=== PATIENT | female | born 1950 | race Caucasian/White ===

== ENCOUNTER 2018-12-01 21:00 | Emergency (ER) | payer MEDICARE, OTHER ==
[2018-12-01] MEDS ORDERED: Sodium Chloride 0.9% 1,000 ML IV STA (22:23)
[2018-12-01] MEDS ORDERED: Iohexol 240 (50 ml) PO ONE (22:23)
--- NOTE | 2018-12-01 22:33 | ED PDOC ---
HPI: Abdomen Time Seen by Provider: 12/01/18 21:10 Chief Complaint (Nursing): Back Pain Chief Complaint (Provider): Abdominal Pain History Per: Patient History/Exam Limitations: no limitations Onset/Duration Of Symptoms: Days (x 1) Current Symptoms Are (Timing): Still Present Location Of Pain/Discomfort: Epigastric, LLQ Quality Of Discomfort: "Pain" Associated Symptoms: Fever, Nausea Additional Complaint(s): 68 year old female with a history of HTN, cervical radiculopathy and asthma presents to the ED for evaluation of left lower and mid-abdominal pain associated with nausea and subjective fever. Patient reports she took Tylenol and Aleve prior to arrival. Denies rash and vomiting. PMD: Dr. Marcell Baez Past Medical History Reviewed: Historical Data, Nursing Documentation, Vital Signs Vital Signs: Last Vital Signs Temp 98.4 F 12/01/18 21:05 Pulse 96 H 12/01/18 21:05 Resp 16 12/01/18 21:05 BP 145/89 12/01/18 21:05 Pulse Ox 98 12/01/18 21:05 - Medical History PMH: Asthma, Gastritis, HTN Denies: HIV, Chronic Kidney Disease - Surgical History Surgical History: (x2) Other surgeries: Dilation & curretage - Family History Family History: States: Unknown Family Hx - Home Medications Home Medications: Ambulatory Orders Medication Instructions Recorded Metoprolol Tartrate [Lopressor] 25 mg PO DAILY #0 tab 04/15/15 Albuterol Sulfate [Proventil Hfa] 2 inh INH PRN PRN 12/01/18 Ciprofloxacin [Cipro] 500 mg PO Q12 #14 tab 12/02/18 Dicyclomine [Bentyl] 20 mg PO Q12 PRN #20 tab 12/02/18 Ondansetron ODT [Zofran ODT] 4 mg PO Q6 PRN #8 odt 12/02/18 metroNIDAZOLE [Flagyl] 500 mg PO Q12 #14 tab 12/02/18 - Allergies Allergies/Adverse Reactions: Allergies Allergy/AdvReac Type Severity Reaction Status Date / Time latex Allergy RASH Verified 10/08/15 23:53 Review of Systems ROS Statement: Except As Marked, All Systems Reviewed And Found Negative Constitutional: Positive for: Fever. Negative for: Chills Gastrointestinal: Positive for: Abdominal Pain (left lower and mid abdominal ). Negative for: Nausea, Vomiting, Diarrhea Skin: Negative for: Rash Physical Exam - Reviewed Nursing Documentation Reviewed: Yes Vital Signs Reviewed: Yes - Physical Exam Appears: Positive for: Non-toxic, No Acute Distress Head Exam: Positive for: ATRAUMATIC, NORMAL INSPECTION, NORMOCEPHALIC Skin: Positive for: Normal Color, Warm, Dry. Negative for: Rash Eye Exam: Positive for: EOMI, Normal appearance, PERRL Neck: Positive for: Normal, Painless ROM, Supple Cardiovascular/Chest: Positive for: Regular Rate, Rhythm. Negative for: Murmur Respiratory: Positive for: Normal Breath Sounds. Negative for: Respiratory Distress Gastrointestinal/Abdominal: Positive for: Bowel Sounds, Soft, Tenderness (left sided abdominal ). Negative for: Mass, Guarding, Rebound Back: Positive for: Normal Inspection. Negative for: L CVA Tenderness, R CVA Tenderness Extremity: Positive for: Normal ROM (x 4). Negative for: Deformity Neurological/Psych: Positive for: Awake, Alert, Normal Tone, Oriented. Negative for: Motor/Sensory Deficits - Laboratory Results Result Diagrams: 12/01/18 23:00 12/01/18 23:00 - ECG O2 Sat by Pulse Oximetry: 98 (RA) Pulse Ox Interpretation: Normal Medical Decision Making Medical Decision Makin:23 Impression: abdominal pain r/o diverticulitis, pyelonephritis Initial Plan: --CMP --CBC --CT Abdomen & Pelvis w/ contrast --NS IV 999 mls --Omnipaque 50 ml PO --Zofran 4 mg IV --Blood cx Not able to give medications for pain due to medications taken prior to arrival. 22:44 Patient to be signed out to Dr. Anderson pending full ER workup including labs and CT, re-evaluation and final disposition. Scribe Attestation: Documented by Manda Mckinnon, acting as a scribe for Arash Gonsales MD Provider Scribe Attestation: All medical record entries made by the Jessica were at my direction and personally dictated by me. I have reviewed the chart and agree that the record accurately reflects my personal performance of the history, physical exam, medical decision making, and the department course for this patient. I have also personally directed, reviewed, and agree with the discharge instructions and disposition Disposition - Clinical Impression Clinical Impression: Colitis - Patient ED Disposition Is Patient to be Admitted: Transfer of Care - Disposition Disposition: Transfer of Care Disposition Time: 22:45 Condition: STABLE Prescriptions: Ciprofloxacin [Cipro] 500 mg PO Q12 #14 tab Dicyclomine [Bentyl] 20 mg PO Q12 PRN #20 tab PRN Reason: abdominal pain/diarrhea metroNIDAZOLE [Flagyl] 500 mg PO Q12 #14 tab Ondansetron ODT [Zofran ODT] 4 mg PO Q6 PRN #8 odt PRN Reason: Nausea/Vomiting Instructions: Colitis Forms: [employer] (Turkish), [facility] ED School/Work Excuse Patient Signed Over To: Kole Anderson Handoff Comments: Pending full Er workup, CT and re-evaluation
[2018-12-01] MEDS ORDERED: Iohexol 240 (50 ml) ONE (22:50)
[2018-12-01 23:13] LABS: BASO # 0.1 K/uL (0.0-0.2); BASO % 0.6 % (0.0-2.0); EOS # 0.1 K/uL (0.0-0.7); EOS % 0.7 % (0.0-4.0); LYMPH # 2.5 K/uL (1.0-4.3); LYMPH % 21.9 % (20.0-40.0); MEAN CELL VOLUME 88.4 fl (81.0-99.0); MEAN CORPUSCULAR HEMOGLOBIN 30.9 pg (27.0-31.0); MEAN PLATELET VOLUME 7.6 fl (7.2-11.7); MONO # 1.3 K/uL (0.0-0.8); MONO % 11.7 % (0.0-10.0); NEUT # 7.4 K/uL (1.8-7.0); NEUT % 65.1 % (50.0-75.0); NRBC % 0.1 % (0.0-0.0); RBC 4.85 Mil/uL (3.80-5.20); RED CELL DISTRIBUTION WIDTH 12.5 % (11.5-14.5)
[2018-12-01 23:23] LABS: ALB/GLOB RATIO 1.2 (1.0-2.1); ALBUMIN 4.4 g/dL (3.5-5.0); ALT/SGPT 50 U/L (9-52); AST/SGOT 45 U/L (14-36); BLOOD UREA NITROGEN 11 mg/dl (7-17); CALCIUM 9.7 mg/dL (8.4-10.2); GFR NON-AFRICAN AMERICAN > 60
[2018-12-01 23:27] LABS: WHITE BLOOD COUNT 11.3 K/uL (4.8-10.8)
[2018-12-01 23:59] LABS: URINE BACTERIA RARE (<OCC); URINE BILIRUBIN NEGATIVE (NEGATIVE); URINE BLOOD NEGATIVE (NEGATIVE); URINE CLARITY CLEAR (Clear); URINE COLOR COLORLESS (YELLOW); URINE GLUCOSE (UA) NEG (NEGATIVE); URINE LEUKOCYTE ESTERASE NEG Leu/uL (Negative); URINE PROTEIN NEGATIVE (NEGATIVE); URINE UROBILINOGEN 0.2-1.0 mg/dL (0.2-1.0)
[2018-12-02] MEDS ORDERED: Sodium Chloride 0.9% 50 ML IV ONE (00:52)
[2018-12-02] MEDS ORDERED: Iohexol 300 100 ML IJ ONE (00:52)
--- NOTE | 2018-12-02 02:28 | ED PDOC ---
- Laboratory Results Result Diagrams: 12/01/18 23:00 12/01/18 23:00 Lab Results: Total Bilirubin 1.4 mg/dl (0.2-1.3) H 12/01/18 23:00 AST 45 U/L (14-36) H 12/01/18 23:00 ALT 50 U/L (9-52) 12/01/18 23:00 Alkaline Phosphatase 68 U/L (38-126) 12/01/18 23:00 Total Protein 8.1 G/DL (6.3-8.2) 12/01/18 23:00 Albumin 4.4 g/dL (3.5-5.0) 12/01/18 23:00 Globulin 3.7 gm/dL (2.2-3.9) 12/01/18 23:00 Albumin/Globulin Ratio 1.2 (1.0-2.1) 12/01/18 23:00 Urine Color Colorless (YELLOW) 12/01/18 23:54 Urine Clarity Clear (Clear) 12/01/18 23:54 Urine pH 7.0 (5.0-8.0) 12/01/18 23:54 Ur Specific [place] < 1.005 (1.003-1.030) 12/01/18 23:54 Urine Protein Negative mg/dL (NEGATIVE) 12/01/18 23:54 Urine Glucose (UA) Neg mg/dL (NEGATIVE) 12/01/18 23:54 Urine Ketones Negative mg/dL (NEGATIVE) 12/01/18 23:54 Urine Blood Negative (NEGATIVE) 12/01/18 23:54 Urine Nitrate Negative (NEGATIVE) 12/01/18 23:54 Urine Bilirubin Negative (NEGATIVE) 12/01/18 23:54 Urine Urobilinogen 0.2-1.0 mg/dL (0.2-1.0) 12/01/18 23:54 Ur Leukocyte Esterase Neg William/uL (Negative) 12/01/18 23:54 Urine RBC (Auto) 1 /hpf (0-3) 12/01/18 23:54 Urine Microscopic WBC < 1 /hpf (0-5) 12/01/18 23:54 Urine Bacteria Rare (<OCC) 12/01/18 23:54 - ECG O2 Sat by Pulse Oximetry: 98 (RA) Pulse Ox Interpretation: Normal Medical Decision Making Medical Decision Makin:00 --Patient signed out to this provider by Dr. Gonsales pending ER workup, CT, re- evaluation and final disposition. 02:02 CT FINDINGS: LUNG BASES: 5 mm subpleural nodule in the right middle lobe on series 2, image 6. This is unchanged from the 2015 study, indicating benignity. Minimal atelectasis near the lung bases. LIVER: There is diffuse fatty infiltration of liver. GALLBLADDER AND BILE DUCTS: The gallbladder appears within normal limits. No radioopaque gallstones are seen. No biliary ductal dilatation is evident. PANCREAS: Unremarkable. SPLEEN: Unremarkable. ADRENAL GLANDS: Unremarkable. KIDNEYS, URETERS, AND BLADDER: The kidneys appear within normal limits. There is no hydronephrosis or hydroureter. No urinary calculi are seen. STOMACH AND BOWEL: No bowel obstruction. There is pericolonic stranding and fluid adjacent to the descending colon with wall thickening at the mid-descending colon. This could represent focal colitis, diverticulitis or mass with associated inflammation. Consider short-term interval repeat imaging after appropriate antimicrobial therapy if indicated. Alternatively, if indicated, this could be evaluated with colonoscopy. APPENDIX: Normal appendix is present in the right lower quadrant. PERITONEUM: No free fluid. No free air. LYMPH NODES: No lymphadenopathy is evident. REPRODUCTIVE: Unremarkable as visualized. VASCULATURE: No evidence of abdominal aortic aneurysm. BONES: Mild multilevel degenerative spine changes. IMPRESSION: 1. There is diffuse fatty infiltration of liver. This was also present on the 2015 study. 2. There is pericolonic stranding and fluid adjacent to the descending colon with wall thickening at the mid-descending colon. This could represent focal colitis, diverticulitis or mass with associated inflammation. Consider short- term interval repeat imaging after appropriate antimicrobial therapy if indicated. Alternatively, if indicated, this could be evaluated with colonoscopy. 3. Additional incidental findings as described above. 03:34 Patient was offered admission. However, she reports she feels better and agreed to follow up with Dr. Alonzo. Return precautions provided. Diagnosis is colitis. Scribe Attestation: Documented by Manda Mckinnon, acting as a scribe Malinda Anderson MD Provider Scribe Attestation: All medical record entries made by the Scribe were at my direction and personally dictated by me. I have reviewed the chart and agree that the record accurately reflects my personal performance of the history, physical exam, medical decision making, and the department course for this patient. I have also personally directed, reviewed, and agree with the discharge instructions and disposition Disposition - Clinical Impression Clinical Impression: Colitis - POA Present On Arrival: None - Disposition Disposition: Routine/Home Disposition Time: 03:34 Condition: STABLE Prescriptions: Ciprofloxacin [Cipro] 500 mg PO Q12 #14 tab Dicyclomine [Bentyl] 20 mg PO Q12 PRN #20 tab PRN Reason: abdominal pain/diarrhea metroNIDAZOLE [Flagyl] 500 mg PO Q12 #14 tab Ondansetron ODT [Zofran ODT] 4 mg PO Q6 PRN #8 odt PRN Reason: Nausea/Vomiting Instructions: Colitis Forms: [facility] (Maltese), [facility] ED School/Work Excuse
[2018-12-02 02:50] VITALS: RESP 18
[2018-12-02] MEDS ORDERED: Ciprofloxacin 400mg/200ml D5W 400 MG/200 ML BAG IV STA (03:33)
[2018-12-02] MEDS ORDERED: metroNIDAZOLE 500mg/100ml NS 100 ML IVPB STA (03:33)
[2018-12-02] MEDS ORDERED: metroNIDAZOLE 500mg/100ml NS 100 ML IVPB ONE (03:51)
[2018-12-02] MEDS ORDERED: Ciprofloxacin 400mg/200ml D5W 400 MG/200 ML BAG IVPB ONE (05:00)
[2018-12-02 06:40] VITALS: BP 116/77; PULSE 80; TEMP 98.4
[2018-12-02 06:50] VITALS: O2SAT 98
--- NOTE | 2018-12-02 15:48 | CT ---
Date of service: 12/02/2018 PROCEDURE: CT Abdomen and Pelvis with contrast HISTORY: abd pain left sided COMPARISON: 11/26/2014 TECHNIQUE: Contrast dose: 90 mL Omnipaque 300 Radiation dose: Total exam DLP = 301.92 mGy-cm. This CT exam was performed using one or more of the following dose reduction techniques: Automated exposure control, adjustment of the mA and/or kV according to patient size, and/or use of iterative reconstruction technique. FINDINGS: LOWER THORAX: Unremarkable. LIVER: Unremarkable. No gross lesion or ductal dilatation. GALLBLADDER AND BILE DUCTS: Unremarkable. PANCREAS: Unremarkable. No gross lesion or ductal dilatation. SPLEEN: Unremarkable. ADRENALS: Unremarkable. No mass. KIDNEYS AND URETERS: Unremarkable. No hydronephrosis. No solid mass. VASCULATURE: Unremarkable. No aortic aneurysm. No aortic atherosclerotic calcification or mural plaque present. BOWEL: There is focal mural thickening of the mid descending colon in a circumferential fashion but somewhat asymmetrically. There is marked pericolonic stranding and a small amount of fluid in the pericolic gutter. These findings most likely reflect a focal diverticulitis. Cannot exclude neoplasm. Recommend follow-up with colonoscopy when clinically feasible. No other abnormal bowel loops. No bowel obstruction. APPENDIX: Not identified. No secondary findings. PERITONEUM: Unremarkable. No free fluid. No free air. LYMPH NODES: Unremarkable. No enlarged lymph nodes. BLADDER: Unremarkable. REPRODUCTIVE: Unremarkable postmenopausal uterus BONES: No acute fracture. OTHER FINDINGS: None. IMPRESSION: Probable focal diverticulitis mid descending colon. Cannot rule out underlying neoplasm. Recommend evaluation with colonoscopy when clinically feasible to exclude neoplasm. No other acute abnormality The preliminary findings for this examination were reported by [facility] at 2:01 a.m. on 12/02/2018. There is concurrence of this report with the preliminary findings.
== END 2018-12-02 06:40 | disposition home or self-care (01) ==
LOC: H.ER 21:00
DX: K52.9 Noninfective gastroenteritis and colitis, unspecified (principal); I10 Essential (primary) hypertension; Z79.899 Other long term (current) drug therapy
CPT/HCPCS: 74177; 80053; 81003; 85025; 87040; 87086; 96361; 96365; 96367; 96375; 96376; 99283; J0744; J1885; J2405; J7030; Q9966; Q9967

== ENCOUNTER 2019-02-03 12:10 | Emergency (ER) | payer OTHER ==
[2019-02-03 12:18] VITALS: TEMP 98.4
[2019-02-03] MEDS ORDERED: methylPREDNISolone 125 MG in Sodium Chloride 0.9% 50 ML IV STA (12:44)
[2019-02-03] MEDS ORDERED: Albuterol 0.083% Inhal Sol (2.5 mg/3 mL) UD INH STA (12:44)
--- NOTE | 2019-02-03 12:48 | ED PDOC ---
HPI: Influenza Time Seen by Provider: 02/03/19 12:26 Chief Complaint: Cough, Cold, Congestion Chief Complaint (Provider): Cough, Cold, Congestion History Per: Patient Exam Limitations: no limitations Onset/Duration Of Symptoms: Other (x1 weeek) Additional complaint(s):: Patient is a 69 y/o female with a PMHx of asthma, HTN, diverticulitis (which she was recently diagnosed and treated for in November), and gastritis who presents to the ED for evaluation of cough productive of thick, yellow sputum, shortness of breath, and wheezing for the past week. Patient complains of associated left- sided chest and back pain when coughing, nausea, a stuffy nose, and sore throat. Patient states she has been using a nebulizer and taking Tylenol with minimal relief. Patient reports the last time she took Tylenol and used her nebulizer was 6:00 this morning. Patient notes she recently experienced five episodes of diarrhea three days ago after eating some bad food, she notes that the amount has improved but she continues with non bloody soft stools. She saw a GI doctor last week and is scheduled for colonoscopy 02/12. She does note mild LLQ pain. 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 Her grandson is also now sick with similar symptoms and fever. Pt denies recent travel, CAD, leg pain or swelling. PCP: Marcell Baez Past Medical History Reviewed: Historical Data, Nursing Documentation, Vital Signs Vital Signs: Last Vital Signs Temp 98.4 F 02/03/19 12:13 Pulse 94 H 02/03/19 12:13 Resp 16 02/03/19 12:13 BP 157/80 H 02/03/19 12:13 Pulse Ox 100 02/03/19 12:13 Primary Care Provider: Marcell Baez I - Medical History PMH: Asthma, Diverticulitis, Gastritis, HTN Denies: Diabetes, HIV, Hypercholesterolemia, Chronic Kidney Disease - Surgical History Surgical History: (x2) - Family History Family History: States: Unknown Family Hx Denies: IN - Social History Current smoker - smoking cessation education provided: No Ex-Smoker (has not smoked in the last 12 months): No Alcohol: None Drugs: Denies - Home Medications Home Medications: Ambulatory Orders Medication Instructions Recorded Metoprolol Tartrate [Lopressor] 25 mg PO DAILY #0 tab 04/15/15 Albuterol Sulfate [Proventil Hfa] 2 inh INH PRN PRN 12/01/18 Ciprofloxacin [Cipro] 500 mg PO Q12 #14 tab 12/02/18 Dicyclomine [Bentyl] 20 mg PO Q12 PRN #20 tab 12/02/18 Ondansetron ODT [Zofran ODT] 4 mg PO Q6 PRN #8 odt 12/02/18 metroNIDAZOLE [Flagyl] 500 mg PO Q12 #14 tab 12/02/18 Albuterol 0.083% [Albuterol 0.083% 2.5 mg IH Q6 PRN #10 neb 02/03/19 Inhal Gogo (2.5 mg/3 ml) UD] Bacillus Coagulans [Probiotic] 1 each PO DAILY #7 capsule. 02/03/19 Ciprofloxacin [Cipro] 500 mg PO BID 7 Days #14 tab 02/03/19 Metronidazole [Flagyl] 500 mg PO BID 7 Days #14 tablet 02/03/19 Nebulizer [Lc D Nebulizer Set] 1 each MC Q6 PRN #1 each 02/03/19 predniSONE [predniSONE Tab] 20 mg PO DAILY #12 tab 02/03/19 traMADol [Ultram] 50 mg PO TID PRN #12 tab 02/03/19 - Allergies Allergies/Adverse Reactions: Allergies Allergy/AdvReac Type Severity Reaction Status Date / Time latex Allergy RASH Verified 02/03/19 12:13 Review of Systems ROS Statement: Except As Marked, All Systems Reviewed And Found Negative ENT: Positive for: Nose Discharge, Throat Pain (soreness) Cardiovascular: Positive for: Chest Pain Respiratory: Positive for: Cough (left-sided), Shortness of Breath, Sputum (thick yellow), Wheezing Gastrointestinal: Positive for: Nausea. Negative for: Diarrhea Musculoskeletal: Positive for: Back Pain Physical Exam - Reviewed Nursing Documentation Reviewed: Yes Vital Signs Reviewed: Yes - Physical Exam Comments: GENERAL APPEARANCE: Patient is awake, alert, oriented x 3, in no acute distress. SKIN: Warm, dry; (-) cyanosis. EYES: (-) conjunctival pallor. EOMI. PERRL. ENMT: Moist mucous membranes. Airway patent: (-) stridor. Pharynx: (+) posterior erythema, (-) swelling. NECK: (-) tenderness, (-) stiffness, (-) lymphadenopathy. CHEST AND RESPIRATORY: deep breaths elicit cough; (+) left lateral and posterior rib tenderness; (-) bilateral expiratory wheezing; (-) rales, (-) rhonchi, (-) rub; breath sounds equal bilaterally. HEART AND CARDIOVASCULAR: (-) irregularity; (-) murmur, (-) gallop. BACK: (+) left shoulder blade tenderness. ABDOMEN AND GI: Soft; (+) mild left lower quadrant tenderness; (-) mass, (-) guarding, (-) rebound, (-) organomegaly. EXTREMITIES: (-) deformity, (-) edema. NEURO AND PSYCH: Mental status as above; (-) focal findings. Medical Decision Making Medical Decision Making: Time: 1243 Impression: Asthma Exacerbation vs Viral Illness vs PNA Plan: EKG CMP CBC CXR Albuterol 2.5 mg INH SOLU-Medrol 125 mg IVP IV Insertion Peak Flow Pre/Post TX Influenza A B UA Zofran Inj 4 mg IVP (for nausea) Date of service: 02/03/2019 HISTORY: cough, pain, asthma COMPARISON: 09/26/2016 TECHNIQUE: Chest PA and lateral views FINDINGS: LUNGS: No consolidation. Coarse bilateral infrahilar bronchovascular markings-stable in appearance chronic medial bibasilar peribronchial inflammatory changes compatible with this. No acute pathology here appreciated. PLEURA: No significant pleural effusion identified. No pneumothorax apparent. CARDIOVASCULAR: No aortic atherosclerotic calcification present. Normal cardiac size. No pulmonary vascular congestion. OSSEOUS STRUCTURES: No significant abnormalities. VISUALIZED UPPER ABDOMEN: Normal. OTHER FINDINGS: None. IMPRESSION: No active disease. Other findings as above. 13:55 on re eval pt reports left sided back pain from coughing, on abdominal exam she does have +RUQ and LLQ tenderness +murphys sign, will order US as her LFTs and lipase are elevated and toradol IV for pain pt pre and post peak flow have improved,pt reports feeling a lot better after breathing treatment 16:50 on re eval pt is back from US, pending results, pt notes cough seems better, still some pain when coughing, mild expiratory wheeze on left, will give another treatment Time: 1802 US FINDINGS: LIVER: Measures 12.5 cm in length. There is diffuse increased echogenicity of the liver parenchyma. No mass. No intrahepatic bile duct dilatation. GALLBLADDER: There are no gallstones, wall thickening or pericholecystic fluid. The sonographic Oconnor's sign is negative. COMMON BILE DUCT: Measures 3.7 mm. No stones. No dilatation. PANCREAS: Unremarkable as visualized. No mass. No ductal dilatation. RIGHT KIDNEY: Measures 8.9 cm in length. Normal echogenicity. No calculus, mass, or hydro nephrosis. AORTA: No aneurysmal dilatation. IVC: Unremarkable. OTHER FINDINGS: None . IMPRESSION: No cholelithiasis or biliary dilatation. Diffuse increased echogenicity in the liver may reflect hepatic steatosis however parenchymal infectious/ inflammatory etiologies cannot be entirely excluded. Clinical and laboratory correlation is advised. 18:15 Discussed case and reviewed labs/images with Dr. Morris, agrees with assessment and plan, recommends treat with Cipro Flagyl and probiotics for diverticulitis and meds for asthma on re eval pt reports just pain in back when coughing, but cough improved, abdominal pain and nausea resolved [place] [employer] Rx search for [place], M[place], [place] show no results lungs are clear, VSS, no respiratory distress, US and CXR with no acute abnormalities, elevated LFTs may be due to frequent Tylenol use, pt is stable for dc Discussed results, diagnosis, treatment, strict return precautions and importance of f/u with pt who is understanding, in agreement and stable for dc Scribe Attestation: Documented by Ayaan Her, acting as a scribe forNakul Gonzales PA-C. Provider Scribe Attestation: All medical record entries made by the Scribe were at my direction and personally dictated by me. I have reviewed the chart and agree that the record accurately reflects my personal performance of the history, physical exam, medical decision making, and the department course for this patient. I have also personally directed, reviewed, and agree with the discharge instructions and disposition. - Laboratory Results Result Diagrams: 02/03/19 13:01 02/03/19 13:01 - ECG ECG Rhythm: Positive for: Normal QRS, Normal ST Segment, Sinus Rhythm. Negative for: ST/T Changes Rate: 85 O2 Sat by Pulse Oximetry: 100 (RA) Pulse Ox Interpretation: Normal Disposition - Clinical Impression Clinical Impression: Asthma exacerbation, Steatosis of liver, Elevated liver function tests, Diverticulitis - Patient ED Disposition Is Patient to be Admitted: No Counseled Patient/Family Regarding: Studies Performed, Diagnosis, Need For Followup, Rx Given - Disposition Referrals: Marcell Baez MD [Family Provider] - Disposition: Routine/Home Disposition Time: 18:27 Condition: IMPROVED Additional Instructions: Thank you for letting us take care of you today. The emergency medical care you received today was directed at your acute symptoms. If you were prescribed any medication, please fill it and take as directed. It may take several days for your symptoms to resolve. Return to the Emergency Department if your symptoms worsen, do not improve, or if you have any other problems. Please contact your doctor in 2 days for re-evaluation and follow up / or call one of the physicians/clinics you have been referred to that are listed on the Patient Visit Information form that is included in your discharge packet. Bring any paperwork you were given at discharge with you along with any medications you are taking to your follow up visit. Our treatment cannot replace ongoing medical care by a primary care provider (PCP) outside of the emergency department. Prescriptions: Albuterol 0.083% [Albuterol 0.083% Inhal Gogo (2.5 mg/3 ml) UD] 2.5 mg IH Q6 PRN #10 neb PRN Reason: Wheezing Bacillus Coagulans [Probiotic] 1 each PO DAILY #7 capsule. Ciprofloxacin [Cipro] 500 mg PO BID 7 Days #14 tab Metronidazole [Flagyl] 500 mg PO BID 7 Days #14 tablet Nebulizer [Lc D Nebulizer Set] 1 each MC Q6 PRN #1 each PRN Reason: Wheezing predniSONE [predniSONE Tab] 20 mg PO DAILY #12 tab traMADol [Ultram] 50 mg PO TID PRN #12 tab PRN Reason: Pain, Severe (8-10) Instructions: Asthma in Adults, Diverticulitis, Nonalcoholic Fatty Liver Disease (DC) Forms: [employer] (Libyan), [facility] ED School/Work Excuse Print Language: FINNISH - POA Present On Arrival: None
[2019-02-03] MEDS ORDERED: Albuterol 0.083% Inhal Sol (2.5 mg/3 mL) UD ONE (13:03)
[2019-02-03 13:07] LABS: BASO # 0.1 K/uL (0.0-0.2); BASO % 0.9 % (0.0-2.0); EOS # 0.3 K/uL (0.0-0.7); EOS % 5.4 % (0.0-4.0); HEMOGLOBIN 14.8 g/dL (12.0-16.0); LYMPH # 2.1 K/uL (1.0-4.3); LYMPH % 37.3 % (20.0-40.0); MEAN CELL VOLUME 89.5 fl (81.0-99.0); MEAN CORPUSCULAR HEMOGLOBIN 30.3 pg (27.0-31.0); MEAN CORPUSCULAR HGB CONC 33.8 g/dL (33.0-37.0); MEAN PLATELET VOLUME 7.6 fl (7.2-11.7); MONO # 0.5 K/uL (0.0-0.8); MONO % 8.5 % (0.0-10.0); NEUT # 2.7 K/uL (1.8-7.0); NEUT % 47.9 % (50.0-75.0); RBC 4.89 Mil/uL (3.80-5.20); RED CELL DISTRIBUTION WIDTH 12.6 % (11.5-14.5); SQUAMOUS EPITHIAL < 1 /hpf (0-5); URINE BILIRUBIN NEGATIVE (NEGATIVE); URINE BLOOD NEGATIVE (NEGATIVE); URINE CLARITY CLEAR (Clear); URINE COLOR COLORLESS (YELLOW); URINE GLUCOSE (UA) NEG (NEGATIVE); URINE LEUKOCYTE ESTERASE NEG Leu/uL (Negative); URINE PROTEIN NEGATIVE (NEGATIVE); URINE UROBILINOGEN 0.2-1.0 mg/dL (0.2-1.0); WHITE BLOOD COUNT 5.6 K/uL (4.8-10.8)
--- NOTE | 2019-02-03 13:14 | RAD ---
Date of service: 02/03/2019 HISTORY: cough, pain, asthma COMPARISON: 09/26/2016 TECHNIQUE: Chest PA and lateral views FINDINGS: LUNGS: No consolidation. Coarse bilateral infrahilar bronchovascular markings-stable in appearance chronic medial bibasilar peribronchial inflammatory changes compatible with this. No acute pathology here appreciated. PLEURA: No significant pleural effusion identified. No pneumothorax apparent. CARDIOVASCULAR: No aortic atherosclerotic calcification present. Normal cardiac size. No pulmonary vascular congestion. OSSEOUS STRUCTURES: No significant abnormalities. VISUALIZED UPPER ABDOMEN: Normal. OTHER FINDINGS: None. IMPRESSION: No active disease. Other findings as above.
[2019-02-03 13:17] LABS: ALB/GLOB RATIO 1.3 (1.0-2.1); ALBUMIN 4.6 g/dL (3.5-5.0); ALT/SGPT 58 U/L (9-52); AST/SGOT 48 U/L (14-36); BLOOD UREA NITROGEN 15 mg/dl (7-17); CALCIUM 9.3 mg/dL (8.4-10.2); GFR NON-AFRICAN AMERICAN > 60
[2019-02-03 16:21] VITALS: RESP 18
--- NOTE | 2019-02-03 16:21 | CARD ---
APPROVED REPORT Date of service: 02/03/2019 EKG Measurement Heart [id number] <Conclusion> Normal sinus rhythm Possible Left atrial enlargement Borderline ECG
[2019-02-03] MEDS ORDERED: Albuterol-Ipratrop 3 mg / 0.5 (3 ml) UD INH STA (17:02)
[2019-02-03] MEDS ORDERED: Albuterol-Ipratrop 3 mg / 0.5 (3 ml) UD ONE (17:32)
--- NOTE | 2019-02-03 18:05 | US ---
Date of service: 02/03/2019 HISTORY: RUQ pain, elevated LFTs, lipase COMPARISON: None. TECHNIQUE: Grayscale imaging was performed. FINDINGS: LIVER: Measures 12.5 cm in length. There is diffuse increased echogenicity of the liver parenchyma. No mass. No intrahepatic bile duct dilatation. GALLBLADDER: There are no gallstones, wall thickening or pericholecystic fluid. The sonographic Oconnor's sign is negative. COMMON BILE DUCT: Measures 3.7 mm. No stones. No dilatation. PANCREAS: Unremarkable as visualized. No mass. No ductal dilatation. RIGHT KIDNEY: Measures 8.9 cm in length. Normal echogenicity. No calculus, mass, or hydronephrosis. AORTA: No aneurysmal dilatation. IVC: Unremarkable. OTHER FINDINGS: None . IMPRESSION: No cholelithiasis or biliary dilatation. Diffuse increased echogenicity in the liver may reflect hepatic steatosis however parenchymal infectious/ inflammatory etiologies cannot be entirely excluded. Clinical and laboratory correlation is advised.
[2019-02-03 19:18] VITALS: BP 143/92
[2019-02-03 20:06] VITALS: PULSE 85; O2SAT 100
== END 2019-02-03 19:17 | disposition home or self-care (01) ==
LOC: H.ER 12:10
DX: J45.901 Unspecified asthma with (acute) exacerbation (principal); K57.92 Diverticulitis of intestine, part unspecified, without perforation or abscess without bleeding; R94.5 Abnormal results of liver function studies; K76.0 Fatty (change of) liver, not elsewhere classified; I10 Essential (primary) hypertension
CPT/HCPCS: 71046; 76705; 80053; 81003; 83690; 85025; 87804; 93005; 94150; 94640; 96374; 96375; 99284; J1885; J2405; J2930